=== PATIENT | male | born 1995 | race African-American/Black ===

== ENCOUNTER 2017-08-09 14:11 | Emergency (ER) | payer OTHER ==
--- NOTE | ~2017-08-09 | CR63 ---
[facility]. [facility] A Service of [facility] & [facility] / [facility] RADIOLOGY TEXT RESULTS PATIENT: JAQUELIN MORALES LOCATION: SED : 95 UNIT #: [id number] AGE: [address]: PARKER REAL SEX: M ORDER DR: [id number] [place] [address] [id number] E MR#: [id number] Acc #: [id number] NAME: JAQUELIN MORALES : 1995 SEX: M STUDY DATE/TIME: 08/09/2017 14:50 UNIT: SED ROOM: STUDY DESCRIPTION: CR Chest 2 View Attending Physician: Parker Real Aprn Ordering Physician: Parker Real Aprn Primary Care Physician: Primary Care Physician No MEDICAL IMAGING REPORT This report is preliminary unless electronic signature is present. EXAM PA and lateral chest DATE 08/09/2017 HISTORY 22-year-old male with cough, congestion which began [id number] days ago. COMPARISON None FINDINGS No acute airspace disease. Normal heart size. No pleural effusion or pneumothorax. No acute osseous abnormality. IMPRESSION 1. No acute cardiopulmonary findings. Dictated by... Rebecca Cleveland M.D. THIS IS AN ELECTRONICALLY VERIFIED REPORT Rebecca Cleveland M.D. at 08/12/2017 8:34 AM HELEN/lolly TD: 08/10/2017 03:40 JOB #: [id number] MEDICAL IMAGING REPORT Page 1 of 1
== END 2017-08-09 16:18 | disposition home or self-care (01) ==
LOC: SED 14:11
DX: J06.9 Acute upper respiratory infection, unspecified (principal); F17.200 Nicotine dependence, unspecified, uncomplicated
CPT/HCPCS: 71020; 87651; 94640; 99283